=== PATIENT | female | born 2000 | race Caucasian/White ===

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

== ENCOUNTER 2018-05-23 15:07 | Emergency (ER) | payer OTHER ==
[~2018-05-23] VITALS: Ht 154.9 cm; Wt 57.2 kg
[2018-05-23 15:12] VITALS: BP 120/74
== END 2018-05-23 16:06 | disposition left against medical advice (07) ==
LOC: EMS 15:12
DX: N94.6 Dysmenorrhea, unspecified (principal); Z53.21 Procedure and treatment not carried out due to patient leaving prior to being seen by health care provider